=== PATIENT | male | born 1985 | race Caucasian/White ===

== ENCOUNTER 2017-01-06 02:51 | Emergency (ER) | payer SELFPAY ==
[~2017-01-06] VITALS: Ht 175.3 cm; Wt 69.5 kg
[2017-01-06 03:11] VITALS: Ht 175.3 cm; Wt 69.5 kg
== END 2017-01-06 03:11 | disposition left against medical advice (07) ==
LOC: E/R 02:51
DX: Z53.21 Procedure and treatment not carried out due to patient leaving prior to being seen by health care provider (principal)

== ENCOUNTER 2017-01-06 04:44 | Emergency (ER) | payer SELFPAY ==
[~2017-01-06] VITALS: Ht 175.3 cm; Wt 70.5 kg
[2017-01-06 04:58] VITALS: Ht 175.3 cm; Wt 70.5 kg
[2017-01-06] MEDS ORDERED: AZITHROMYCIN 250 MG TAB PO ONE (07:00)
[2017-01-06] MEDS ORDERED: LIDOCAINE 1% (MDV) 20 ML INJ SC ONE (07:00)
[2017-01-06] MEDS ORDERED: CEFTRIAXONE 250 MG INJ IM ONE (07:00)
--- NOTE | 2017-01-06 10:09 | ERD ---
ER Documentation Chief Complaint Date/Time DATE: 01/06/17 TIME: 10:04 Chief Complaint genital pain w/ yellowish discharge per pt verbatim,didn't take BP meds HPI 31 year old male comes in with penile discharge for 5 days. Patient states that he had intercourse with a partner about a week ago and 2 days after started having yellow and green discharge from the penis. He is denies any history of HIV, hepatitis B or hepatitis C. ROS All systems reviewed and are negative except as per history of present illness. Allergies Allergies: Coded Allergies: No Known Allergy (Unverified , 02/14/15) PMhx/Soc Medical and Surgical Hx: pt denies Medical Hx, pt denies Surgical Hx History of Surgery: No Anesthesia Reaction: No Hx Neurological Disorder: No Hx Respiratory Disorders: No Hx Cardiac Disorders: No Hx Psychiatric Problems: No Hx Miscellaneous Medical Probl: No Hx Alcohol Use: No Hx Substance Use: No Hx Tobacco Use: Yes Smoking Status: Current every day smoker Physical Exam Vitals Vital Signs Date Time Temp Pulse Resp B/P Pulse Ox O2 Delivery O2 Flow Rate FiO2 01/06/17 04:58 98.6 100 18 167/100 98 Physical Exam General: Well-developed, well-nourished. The patient appears in no acute distress. HEENT: Head is normocephalic, atraumatic. No scleral icterus. Neck: Supple. Nontender. Lungs: Clear to auscultation. Normal air movement. Heart: Regular rate and rhythm. S1 and S2 are normal. No murmurs, gallops, or rubs. Abdomen: Soft, nontender, nondistended. Bowel sounds are normoactive. Exam: Scrotum: Normal Hernia: None Testes/Epid: Non-tender w/ normal lie Cremaster: Reflex intact Lymph: No inguinal lymphadenopathy Discharge: +discharge that is green from the urethra Extremities: No clubbing or cyanosis. Normal pulses. Moving extremities x 4. No weakness. Neurologic: Alert and oriented 3. No focal deficits. Skin: Normal turgor. No rash or lesions. Results 24 hrs Current Medications Medications (Trade) Dose Ordered Sig/Radha Route PRN Reason Start Time Stop Time Status Last Admin Dose Admin Ceftriaxone Sodium (Rocephin) 250 mg ONCE ONCE IM 01/06/17 07:00 01/06/17 07:18 DC 01/06/17 07:09 Azithromycin (Zithromax) 1,000 mg ONCE ONCE PO 01/06/17 07:00 01/06/17 07:18 DC 01/06/17 07:08 Lidocaine (Xylocaine 1% (Mdv) 20 ml) 20 ml ONCE ONCE SC 01/06/17 07:00 01/06/17 07:18 DC Procedures/MDM 31-year-old male comes in with symptoms of urethritis, likely gonorrhea and patient was given Zithromax and Rocephin in the emergency room. He was interested in getting further testing given his recent exposure, I advised the patient follow-up with her primary care physician as we are not able to follow- up tests for HIV, they may also do blood work for [facility] for syphilis testing. Departure Diagnosis: Primary Impression: Urethritis Condition: Good Patient Instructions: Hiv Testing, Off-Site Referral, Urethritis, Male ( Gonorrhea) Additional Instructions: Call your primary care doctor TOMORROW for an appointment during the next 1-2 days.See the doctor sooner or return here if your condition worsens before your appointment time. SHANTEL PHILLIPS PA-C Jan 06, 2017 10:08
== END 2017-01-06 07:18 | disposition home or self-care (01) ==
LOC: FTE 04:44
DX: N34.2 Other urethritis (principal); F17.210 Nicotine dependence, cigarettes, uncomplicated
CPT/HCPCS: 87591; 96372; 99284; J0696

== ENCOUNTER 2017-02-13 22:00 | Emergency (ER) | payer SELFPAY ==
[~2017-02-13] VITALS: Ht 175.3 cm; Wt 75.0 kg
[2017-02-14 00:25] VITALS: Ht 175.3 cm; Wt 75.0 kg
--- NOTE | 2017-02-14 02:07 | ERD ---
ER Documentation Chief Complaint Date/Time DATE: 02/14/17 TIME: 02:03 Chief Complaint rash or sore in the mouth and rash in the arms HPI 31-year-old male with a rash in the mouth area and on the upper extremities, patient was living with a friend, states that has bug in the apartment, patient left, patient continues to have itching. Patient is now worried that he has bugs all over that his body. Patient feels that they are in his mouth, and they' re they are in his skin. She denies any pain. ROS All systems reviewed and are negative except as per history of present illness. Medications Home Meds Reported Medications [none] Unknown Strength No Conflict Check 02/14/17 Allergies Allergies: Coded Allergies: No Known Allergy (Unverified , 02/14/15) PMhx/Soc History of Surgery: No Anesthesia Reaction: No Hx Neurological Disorder: No Hx Respiratory Disorders: No Hx Cardiac Disorders: No Hx Psychiatric Problems: No Hx Miscellaneous Medical Probl: Yes (HIV) Hx Alcohol Use: No Hx Substance Use: No Hx Tobacco Use: Yes FmHx Family History: No coronary disease, No diabetes, No other Physical Exam Vitals Vital Signs Date Time Temp Pulse Resp B/P Pulse Ox O2 Delivery O2 Flow Rate FiO2 02/14/17 00:25 96.8 68 20 132/95 100 Physical Exam GENERAL: The patient is well developed and appropriate for usual state of health, in no apparent distress. HEENT: Atraumatic. Ears: Normal tympanic membrane, no erythema or bulging. No ear canal swelling. No ear discharge. Nose: normal nasal turbinates, no erythema or swelling. Normal nasal discharge. Throat: oropharynx clear. No tonsillar swelling or tonsillar exudates. No lymphadenopathy. Noted blisters in the perioral area. Noted erythema and the palms of the hands. CHEST: Clear to auscultation bilaterally. There are no rales, wheezes or rhonchi. HEART: Regular rate and rhythm. No murmurs, clicks, rubs or gallops. No S3 or S4. ABDOMEN: Soft, nontender and nondistended. Good bowel sounds. No rebound or guarding. No gross peritonitis. No gross organomegaly or masses. No Garcia sign or McBurney point tenderness. BACK: No midline or flank tenderness. EXTREMITIES: Equal pulses bilaterally. There is no peripheral clubbing, cyanosis or edema. No focal swelling or erythema. Full range of motion. Grossly neurovascularly intact. NEURO: Alert and oriented. Cranial nerves 2-12 intact. Motor strength in all 4 extremities with 5/5 strength. Sensation grossly intact. Normal speech and gait. SKIN: There is no apparent rash or petechia. The skin is warm and dry. HEMATOLOGIC AND LYMPHATIC: There is no evidence of excessive bruising or lymphedema. No gross cervical, axillary, or inguinal lymphadenopathy. Procedures/MDM Medical decision making: Patient's rash in the palms of the hands and upper extremities is nonspecific, possible insect bite. Patient's perioral rash most likely is possibly HSV, nonspecific at this time. Patient was going to be given a prescription for hydroxyzine and acyclovir but patient was mad and angry, and left the department. Departure Diagnosis: Primary Impression: Rash Condition: Stable MILLA CABALLERO NP Feb 14, 2017 02:07
== END 2017-02-13 23:13 | disposition left against medical advice (07) ==
LOC: E/R 22:00 → FTE 23:13
DX: R21 Rash and other nonspecific skin eruption (principal); Z87.891 Personal history of nicotine dependence
CPT/HCPCS: 99282